=== PATIENT | male | born 1965 | race Caucasian/White ===

== ENCOUNTER 2018-07-22 09:35 | Emergency (ER) | payer MEDICAID ==
[~2018-07-22] VITALS: Ht 170.2 cm; Wt 94.0 kg
[2018-07-22] MEDS ORDERED: normal saline 1000ML IV soln IVB ONE (10:00)
[2018-07-22] MEDS ORDERED: ondansetron/PF 4mg/2ml inj IV ONE ×2 (10:00)
[2018-07-22] MEDS ORDERED: famotidine/PF 10 mg/ml inj IV ONE (10:20)
[2018-07-22 10:29] LABS: BASOPHILS % (AUTO) 0.4 % (0-1); EOSINOPHILS # (AUTO) 0.2 X10'3 (0-0.9); EOSINOPHILS % (AUTO) 3.6 % (0-6); HEMATOCRIT 37.6 % (42.0-52.0); HEMOGLOBIN 12.7 g/dl (14.0-17.9); LYMPHOCYTES # (AUTO) 0.4 X10'3 (1.1-4.8); LYMPHOCYTES % (AUTO) 6.9 % (21-51); MEAN CORPUSCULAR HEMOGLOBIN 30.3 PG (27.0-31.0); MEAN CORPUSCULAR HGB CONC 33.8 % (33.0-36.5); MEAN CORPUSCULAR VOLUME 89.7 FL (78-98); MEAN PLATELET VOLUME 6.6 FL (7.4-10.4); MONOCYTES # (AUTO) 0.4 X10'3 (0-0.9); MONOCYTES % (AUTO) 6.8 % (2-12); NEUTROPHILS # (AUTO) 4.6 X10'3 (1.8-7.7); NEUTROPHILS % (AUTO) 82.3 % (42-75); PLATELET COUNT 295 X10'3 (140-440); RED BLOOD COUNT 4.19 X10'6 (4.70-6.10); RED CELL DISTRIBUTION WIDTH 21.9 % (11.5-14.5); WHITE BLOOD COUNT 5.6 X10'3 (4.5-11.0)
[2018-07-22 10:37] LABS: ALANINE AMINOTRANSFERASE 17 U/L (12-78); ALBUMIN 3.3 G/DL (3.4-5.0); ALBUMIN/GLOBULIN RATIO 0.9 (1.1-1.5); ALKALINE PHOSPHATASE 63 IU/L (46-116); ANION GAP 6 (8-16); ASPARTATE AMINO TRANSFERASE 14 U/L (10-37); BILIRUBIN,TOTAL 0.4 MG/DL (0.1-1.0); BLOOD UREA NITROGEN 12 MG/DL (7-18); BUN/CREATININE RATIO 17.4 (5.4-32.0); CHLORIDE 104 MMOL/L (99-107); CREATININE 0.69 MG/DL (0.60-1.10); GLUCOSE 120 MG/DL (70-104); POTASSIUM 3.7 MMOL/L (3.5-5.1); SODIUM 138 MMOL/L (135-145); TOTAL CARBON DIOXIDE 28.5 MMOL/L (24-32); TOTAL PROTEIN 7.1 G/DL (6.4-8.2); eGFR > 90 ML/MIN
[2018-07-22 10:40] LABS: TROPONIN I < 0.04 NG/ML (0.0-0.05)
[2018-07-22] MEDS ORDERED: BARIUM SULFATE 340 ML SUSP.RECON***PROCEDURE AREA ONLY**DONT ENTER PO ONE (10:45)
[2018-07-22 12:01] LABS: ACANTHOCYTES FEW; ANISOCYTOSIS 2+; PLATELET ESTIMATE NORMAL; SPHEROCYTES FEW
[2018-07-22 12:02] LABS: TEAR DROP CELLS FEW
[2018-07-22] MEDS ORDERED: fentaNYL/PF 50MCG/1 ML 2ML syringe ONE (14:07)
[2018-07-22] MEDS ORDERED: MIDAZolam 5mg/5ml vial ONE ×2 (14:07→14:08)
[2018-07-22] MEDS ORDERED: LIDOcaine Viscous 15ml cup ONE (14:08)
[2018-07-22 14:36] VITALS: BP 118/59
[2018-07-22 15:05] VITALS: BP 114/67
[2018-07-22 15:15] VITALS: BP 113/67
[2018-07-22 15:20] VITALS: BP 100/78
[2018-07-22 15:30] VITALS: BP 130/73
[2018-07-22 15:56] VITALS: BP 111/77
== END 2018-07-22 15:58 | disposition home or self-care (01) ==
LOC: ER 09:35
DX: T18.128A Food in esophagus causing other injury, initial encounter (principal); R10.32 Left lower quadrant pain; R10.13 Epigastric pain; Z85.118 Personal history of other malignant neoplasm of bronchus and lung; Z85.048 Personal history of other malignant neoplasm of rectum, rectosigmoid junction, and anus; Z98.890 Other specified postprocedural states; Z87.891 Personal history of nicotine dependence; Z93.3 Colostomy status; Y92.9 Unspecified place or not applicable
CPT/HCPCS: 36415; 43247; 71045; 74220; 80053; 84484; 85025; 93005; 96374; 96375; 99152; 99285; J2250; J2405; J3010; J3490; J7030; 99284; A4620